=== PATIENT | female | born 1955 | race Caucasian/White ===

== ENCOUNTER → 2016-06-01 | Outpatient (CLI) | payer BC ==
[~2016-06-01] MED LIST: ALEVE 220MG220 MG PO; ANTACID EXTRA PO; CENTRUM SILVER1 TAB; LIPITOR 10MG10 MG PO; MUCINEX 60600 MG/TA1 PO; PRILOSEC 20MG20 MG PO; VITAMIN D32000 I1 PO
== END ==
LOC: COL.RAD 09:49
DX: R13.14 Dysphagia, pharyngoesophageal phase (principal); K21.9 Gastro-esophageal reflux disease without esophagitis; M25.78 Osteophyte, vertebrae

== ENCOUNTER → 2016-06-20 | Outpatient (CLI) | payer BC | LOC: COL.RAD 07:52 | DX: R19.15 Other abnormal bowel sounds (principal) | CPT/HCPCS: A9541 ==

== ENCOUNTER 2016-07-28 06:44 | Day surgery (SDC) | payer BC ==
[~2016-07-28] VITALS: Ht 162.6 cm; Wt 83.7 kg
[2016-07-28] MEDS ORDERED: MUCINEX 60600 MG/TA1 PO (07:02)
[2016-07-28] MEDS ORDERED: ALEVE 220MG220 MG PO (07:02)
[2016-07-28] MEDS ORDERED: PRILOSEC 20MG20 MG PO (07:02)
[2016-07-28] MEDS ORDERED: ANTACID EXTRA PO (07:03)
[2016-07-28] MEDS ORDERED: CENTRUM SILVER1 TAB (07:03)
[2016-07-28] MEDS ORDERED: LIPITOR 10MG10 MG PO (07:03)
[2016-07-28] MEDS ORDERED: VITAMIN D32000 I1 PO (07:04)
[2016-07-28 07:05] VITALS: BP 130/89; PULSE 85; TEMP 98.5
[2016-07-28 08:36] VITALS: BP 102/69; PULSE 82; TEMP 98.5
[2016-07-28 08:50] VITALS: BP 110/85; PULSE 70
[2016-07-28 10:48] VITALS: BP 105/65; PULSE 70
== END 2016-07-28 09:16 | disposition home or self-care (01) ==
LOC: SDCO 06:44
DX: K21.0 Gastro-esophageal reflux disease with esophagitis (principal); K44.9 Diaphragmatic hernia without obstruction or gangrene; M25.78 Osteophyte, vertebrae; E78.00 Pure hypercholesterolemia, unspecified; Z90.710 Acquired absence of both cervix and uterus
CPT/HCPCS: J2250; J2405; J3010; J7030

== ENCOUNTER → 2017-01-16 | Outpatient (CLI) | payer BC | LOC: MC.RAD 07:20 | DX: Z12.31 Encounter for screening mammogram for malignant neoplasm of breast (principal) ==

== ENCOUNTER → 2018-02-18 | Outpatient (CLI) | payer BC | LOC: MC.RAD 07:32 | DX: Z12.31 Encounter for screening mammogram for malignant neoplasm of breast (principal) ==

== ENCOUNTER → 2019-02-06 | Outpatient (CLI) | payer BC | LOC: MC.RAD 07:25 | DX: Z12.31 Encounter for screening mammogram for malignant neoplasm of breast (principal) ==

== ENCOUNTER 2019-04-30 06:00 | Day surgery (SDC) | payer BC ==
[~2019-04-30] VITALS: Ht 162.6 cm; Wt 79.7 kg
[~2019-04-30 06:00] MED LIST changes: -ANTACID EXTRA PO; +ANTACID EXTRA750 M1 PO
[2019-04-30 06:22] VITALS: BP 124/77; PULSE 107; TEMP 98.2
[2019-04-30] MEDS ORDERED: CALCIUM CARBON650 M2 PO (06:48)
[2019-04-30] MEDS ORDERED: MUCUS RELIEF400 M1 PO (06:48)
[2019-04-30 07:50] VITALS: BP 104/74; PULSE 77
--- NOTE | 2019-04-30 07:50 | NUR ---
Patient returns to [facility] per cart and is awake and alert. Transfers from cart to recliner with one person assist. IV fluids infusing and site is free of redness. Denies pain or nausea and sipping on Sprite. Temp 97.5 and room air sats 98%. Spouse in room.
[2019-04-30 08:05] VITALS: BP 105/68; PULSE 80
--- NOTE | 2019-04-30 08:05 | NUR ---
Eating muffin and talking with Dr. Andrade. All questions answered. IV fluids continue to infuse.
[2019-04-30 08:20] VITALS: BP 100/67; PULSE 71
--- NOTE | 2019-04-30 08:20 | NUR ---
Tolerates muffin and Sprite. Room air sats 96%.
--- NOTE | 2019-04-30 08:25 | NUR ---
IV discontinued and dresses self.
--- NOTE | 2019-04-30 08:27 | NUR ---
Dismissal instructions given and signed.
--- NOTE | 2019-04-30 08:33 | NUR ---
Patient dismissed to home per private vehicle driven by spouse and taken to the front door per wheelchair and assisted into vehicle driven by spouse with instructions in hand.
[2019-04-30 09:31] VITALS: BP 104/74; PULSE 70; TEMP 97.5
== END 2019-04-30 08:33 | disposition home or self-care (01) ==
LOC: SDCO 06:00
DX: Z12.11 Encounter for screening for malignant neoplasm of colon (principal); K63.5 Polyp of colon; K62.89 Other specified diseases of anus and rectum; K57.30 Diverticulosis of large intestine without perforation or abscess without bleeding; K21.9 Gastro-esophageal reflux disease without esophagitis; E78.00 Pure hypercholesterolemia, unspecified; E07.9 Disorder of thyroid, unspecified; Z79.899 Other long term (current) drug therapy; Z90.710 Acquired absence of both cervix and uterus
CPT/HCPCS: J2250; J2405; J3010; J7030

== ENCOUNTER → 2020-01-19 | Outpatient (CLI) | payer BC ==
[~2020-01-19] MED LIST changes: +CALCIUM CARBON650 M2 PO; +MUCUS RELIEF400 M1 PO
== END ==
LOC: MC.RAD 06:59
DX: Z12.31 Encounter for screening mammogram for malignant neoplasm of breast (principal)

== ENCOUNTER → 2021-03-23 | Outpatient (CLI) | payer BC | LOC: MC.RAD 02-14 07:45 | DX: Z12.31 Encounter for screening mammogram for malignant neoplasm of breast (principal) ==

== ENCOUNTER → 2021-10-13 | Outpatient (CLI) | payer BC | LOC: COL.RAD 12:03 | DX: M51.36 Other intervertebral disc degeneration, lumbar region (principal); M51.26 Other intervertebral disc displacement, lumbar region; M40.46 Postural lordosis, lumbar region ==

== ENCOUNTER → 2024-01-03 | Outpatient (CLI) | payer MEDICARE, BC | LOC: MHCPAIN 14:50 | DX: M54.50 Low back pain, unspecified (principal); M51.369 Other intervertebral disc degeneration, lumbar region without mention of lumbar back pain or lower extremity pain; M79.18 Myalgia, other site | CPT/HCPCS: G0463 ==

== ENCOUNTER → 2024-01-28 | Outpatient (CLI) | payer MEDICARE, BC ==
[~2024-01-28] MED LIST changes: +Lidocaine PF 1% (10 MG/ML) 5 ML VIAL ONE; +Triamcinolone 40 MG/ML 1 ML VIAL ONE
== END ==
LOC: MHCPAIN 13:17
DX: M79.18 Myalgia, other site (principal); M54.50 Low back pain, unspecified; M53.3 Sacrococcygeal disorders, not elsewhere classified
CPT/HCPCS: J3301